=== PATIENT | male | born 1955 | race Caucasian/White ===

== ENCOUNTER 2021-12-20 07:15 | Day surgery (SDC) | payer BC ==
[2021-12-17 08:21] VITALS: BMI 33.6
[~2021-12-20 07:15] MED LIST: ACETAMINOPHEN TAB 500 MG TAB PO PRN; GABAPENTIN 300 MG CAP PO PRN; HYDROmorphone 0.5 MG/0.5 ML SYRINGE IVP PRN; LIDOCAINE 1% (10MG/ML) FOR IV START INTRADERMA PRN; MELOXICAM 7.5 MG TAB PO PRN; ONDANSETRON 4 MG/2 ML VIAL IVP ONE; TRANEXAMIC ACID IN NACL,ISO-OS 1,000 MG in SALINE 1 100ML.BAG IVPB PRN
[2021-12-20] MEDS: LACTATED RINGERS 1,000 ML IV SCH (07:56)
[2021-12-20] MEDS ORDERED: MAGNESIUM HYDROXIDE 2,400 MG/10 ML CUP PO PRN (08:01)
[2021-12-20] MEDS ORDERED: NA PHOS,M-B/NA PHOS,DI-BA 133 ML ENEMA RECTAL PRN (08:01)
[2021-12-20] MEDS ORDERED: ONDANSETRON 4 MG/2 ML VIAL IVP PRN (08:01)
[2021-12-20] MEDS ORDERED: NALOXONE 0.4 MG/ML 1 ML VIAL IV PRN (08:01)
[2021-12-20] MEDS ORDERED: bisacodyL 10 MG SUPP RECTAL PRN (08:01)
[2021-12-20] MEDS ORDERED: HYDROmorphone 0.5 MG/0.5 ML SYRINGE IVP PRN ×3 (08:01)
[2021-12-20] MEDS ORDERED: HYDROcodone/APAP 7.5-325MG 1 EACH TAB PO PRN (08:03)
[2021-12-20] MEDS ORDERED: DEXAMETHASONE SOD PHOSPHATE 4 MG/ML 1 ML VIAL IVP ONE (08:10)
[2021-12-20] MEDS ORDERED: fentaNYL (PF) 50 MCG/ML 2 ML AMP IVP ONE (08:13)
[2021-12-20] MEDS ORDERED: MIDAZOLAM 2 MG/2 ML VIAL IVP ONE (08:13)
[2021-12-20] MEDS ORDERED: ROPIVACAINE 5 MG/ML 30 ML VIAL ONE (08:56)
[2021-12-20] MEDS ORDERED: MIDAZOLAM 2 MG/2 ML VIAL ONE (08:56)
[2021-12-20] MEDS ORDERED: PROPOFOL 10 MG/ML 20 ML VIAL IV ONE (08:56)
[2021-12-20] MEDS ORDERED: TRANEXAMIC ACID IN NACL,ISO-OS 1,000 MG/100 ML BAG ONE (08:56)
[2021-12-20] MEDS ORDERED: fentaNYL (PF) 50 MCG/ML 2 ML AMP ONE (08:56)
[2021-12-20] MEDS ORDERED: SODIUM CHLORIDE 0.9% (PF) 10 ML VIAL ONE (08:56)
[2021-12-20] MEDS ORDERED: ceFAZolin 1,000 MG in SODIUM CHLORIDE 0.9% 1,000 ML IRRIGATION ONE (09:03)
[2021-12-20] MEDS ORDERED: LACTATED RINGERS 1,000 ML IV ONE (10:02)
--- NOTE | 2021-12-20 11:34 | P.OP ---
Date of Procedure: 12/20/21 Preoperative Diagnosis: Ligamentous instability right total knee Postoperative Diagnosis: Ligamentous instability right total knee Procedure(s) Performed: Revision right total knee arthroplasty Implants: Mancia [employer] Nephew Legion Oxinium constrained femoral component size 5, right [employer] Legion press-fit stem, straight 18 mm x 160 mm Mancia [employer] Nephew size 5, 10 mm Legion distal femoral wedge 2 Mancia [employer] Nephew legion revision tibial baseplate size 4, right [employer] Legion press-fit stem, straight 13 mm x 160 mm Mancia [employer] Nephew Trisha II constrained articular insert size 3-4, 15 mm All components were cemented using Palacos R bone cement x 2 The articulation is Oxinium on polyethylene. Anesthesia: spinal Surgeon: Erasmo Bach Volleyball Assistant Coach #1: Saima Adam Estimated Blood Loss (ml): 50 Pathology: other (Cultures 2) Condition: stable Disposition: PACU Indications for Procedure: This is a 66-year-old gentleman that had a right total knee arthroplasty performed approximately 10 years ago. He's having more symptoms of ligamentous instability and after discussing the surgical nonsurgical treatment options with him at length, he wishes to proceed with a revision of his right total knee arthroplasty. Informed consent was obtained. Operative Findings: The operative findings are consistent with ligamentous instability of the right total knee. There is no signs of infection, but there are some mild to moderate polyethylene wear of the tibial component. Description of Procedure: Patient was seen in the preoperative area consent was reviewed and operative site was marked with a skin marker. An adductor canal pain catheter and an iPACK were placed by anesthesia in the preoperative area. Patient was then brought to the operating room and given preoperative antibiotics intravenously. A spinal anesthetic was administered by the anesthesia department. A tourniquet was placed on the upper thigh and the lower extremity was prepped and draped in usual sterile fashion. A gram of transexamic acid was given. A universal timeout was then performed which confirmed the patient's name, surgical site, ALLERGIES, and consent. The lower extremity was then exsanguinated and tourniquet was inflated to 250 mmHg. A standard and anterior midline approach to the knee was performed. The skin and subcutaneous tissue was dissected down to the patellar tendon, with the prior scar being excised. A medial parapatellar arthrotomy was then performed. A moderate amount of clear fluid was encountered, and this was cultured 2. The knee was then extended, the patellar was everted, and the knee was again flexed. The components were then inspected and grossly were found to be well fixed. On exam of the knee there is medial lateral and anterior posterior instability. The tibial poly-was then removed without incident. There was found to be some moderate polyethylene wear of the tibial component. On exam, her some moderate polyethylene wear of the Attention was directed to the femur. Using a small oscillating saw, the implant cement interface was disrupted, and the femoral component was easily removed with an osteotome and a mallet. There was minimal bone loss encountered. Attention was then directed to the tibia. Again using a small oscillating saw, the implant bone interface was disrupted. The tibial component was an easily removed with an osteotome and a mallet. There was very little bone loss from the tibia. Attention was redirected to the femur. Sequential reaming of the femoral canal was performed until good cortical fit was reached. The distal cutting guide was then placed over the reamer the distal femur cut was performed. Next the 4-in-1 cutting block was placed over the reamer and the appropriate cuts were performed. The cutting block and reamer were then removed and the femoral trial was placed. The bone was then removed for the box. Femoral trial was then removed. Attention was then redirected to the tibia. Sequential reaming of the tibial canal was performed until good cortical fit was reached The intramedullary proximal tibial cutting guide was then placed over the reamer, the proximal tibia was cut. The tibia was then prepared.. Trials were then placed with the appropriate-sized constrained liner. The knee was able to fully extend and flex to 125 and was stable throughout all range of motion. Trials were then removed. The cut surfaces of bone were then irrigated with pulsatile lavage. The knee was also irrigated with Irrisept solution. The components were then opened, the cement was mixed, and the components were then cemented in place. The cement was allowed to harden with the knee in full extension. After the cemented hardened. The tourniquet was released, and hemostasis was obtained. A second gram of transexamic acid was given. The knee was again irrigated. The knee was again taken through range of motion and found to be stable throughout all range of motion of 0-130, and the patella tracked normally. The fascia was then closed with #2 strata fix suture. The subcutaneous tissue was closed with 3-0 Vicryl and 3-0 strata fix. Exofin glue was used for the skin and placed with the knee in flexion. The patient was placed in a sterile silver dressing. Patient was then transferred to recovery room in stable condition. The undertaker assistant CRYS Pastor was required due the complexity surgery and the need for a skilled surgical asst. She assisted in positioning, draping, retraction, and closure of the wound.
--- NOTE | 2021-12-20 12:38 | XR ---
EXAMINATION TYPE: XR knee limited RT DATE OF EXAM: 12/20/2021 CLINICAL HISTORY: Right knee pain and arthritis status post total knee revision surgery. TECHNIQUE: Portable AP and crosstable lateral views of the right knee are obtained immediately posto peratively. COMPARISON: Right knee x-ray 07/16/2010. FINDINGS: Metallic hardware from long stem total right knee arthroplasty is seen and appears satisfa ctory in alignment and position. There is evidence of recent surgery with diffuse subcutaneous gas a nd soft tissue swelling noted. IMPRESSION: METALLIC HARDWARE FROM TOTAL RIGHT KNEE ARTHROPLASTY REVISION IS SATISFACTORY IN ALIGNME NT.
[2021-12-20] MEDS ORDERED: ROPIVACAINE 0.2%-NS ON-Q PUMP 2 MG/ML EACH MISCELLANE ONE (12:39)
[2021-12-20] MEDS: SODIUM CHLORIDE 0.9% 1,000 ML IV SCH ×2 (13:12→21:37)
--- NOTE | 2021-12-20 13:40 | P.ANPRN ---
Procedure Note - Anesthesia - Nerve Block Performed Right Adductor Canal Infusion Time Out Performed: Yes (813) Date of Procedure: 12/20/21 Procedure Start Time: 08:14 Procedure Stop Time: 08:20 Location of Patient: PreOp Indication: Acute Post-Operative Pain, Requested by Surgeon Specifically requested for management of pain by DrEdyta: Erasmo Bach Sedation Type: Sedate with meaningful contact maintained Preparation: Sterile Prep, Sterile Dressing Position: Supine Catheter Depth at Skin (cm): 8 Catheter: Indwelling Needle Types: Pajunk Needle Gauge: 21 Ultrasound used to visualize needle placement: Yes Ultrasound used to observe medication spread: Yes Injectate: 0.5% Ropivacaine (see comment for volume) (15cc + 5cc nacl) Blood Aspirated: No Pain Paresthesia on Injection Noted: No Resistance on Injection: Normal Image Stored and Saved: Yes Events: Uneventful and Well Tolerated
--- NOTE | 2021-12-20 13:41 | P.ANPRN ---
Procedure Note - Anesthesia - Nerve Block Performed Right iPack Single Time Out Performed: Yes (813) Date of Procedure: 12/20/21 Procedure Start Time: Procedure Stop Time: Location of Patient: PreOp Indication: Acute Post-Operative Pain, Requested by Surgeon Specifically requested for management of pain by DrEdyta: Erasmo Bach Sedation Type: Sedate with meaningful contact maintained Preparation: Sterile Prep Position: Supine Catheter: None Needle Types: Pajunk Needle Gauge: 21 Ultrasound used to visualize needle placement: Yes Ultrasound used to observe medication spread: Yes Injectate: 0.5% Ropivacaine (see comment for volume) (15cc + 5cc nacl) Blood Aspirated: No Pain Paresthesia on Injection Noted: No Resistance on Injection: Normal Image Stored and Saved: Yes Events: Uneventful and Well Tolerated
--- NOTE | 2021-12-20 17:02 | P.HPIM ---
History of Present Illness H&P Date: 12/20/21 Chief Complaint: Status post right TKA Patient is a 66-year-old male with a past medical history of hypertension and chronic vertigo who presents to the ED for right TKA. Patient was seen after surgery. He currently denies any pain. He has no acute complaints. Review of Systems 10 ROS reviewed and are negative except as noted in HPI Past Medical History Past Medical History: Cancer, Hypertension, Osteoarthritis (OA) Additional Past Medical History / Comment(s): skin cancer History of Any Multi-Drug Resistant Organisms: None Reported Past Surgical History: Hernia Repair, Joint Replacement Additional Past Surgical History / Comment(s): yoselyn knee replacement, hernia x 4, surgery for cleft palate Past Anesthesia/Blood Transfusion Reactions: No Reported Reaction Past Psychological History: No Psychological Hx Reported Smoking Status: Never smoker Past Alcohol Use History: Occasional Past Drug Use History: None Reported - Past Family History Mother Family Medical History: No Reported History Medications and Allergies Home Medications Medication Instructions Recorded Confirmed Type Meclizine [Antivert] 25 mg PO DAILY 12/17/21 12/20/21 History Multivit-Min/Folic/Vit K/Lycop 1 each PO DAILY 12/17/21 12/20/21 History [Men's Multivitamin Tablet] hydroCHLOROthiazide 25 mg PO DAILY 12/17/21 12/20/21 History Aspirin 325 mg PO BID #60 tab 12/20/21 Rx HYDROcodone/APAP 7.5-325MG [[place]kins 1 - 2 tab PO Q6H PRN #32 tab 12/20/21 Rx 7.5-325] Ondansetron Odt [Zofran Odt] 1 tab PO Q8HR PRN #10 tab 12/20/21 Rx Sennosides [Senokot] 2 tab PO DAILY PRN #60 tablet 12/20/21 Rx Allergies Allergy/AdvReac Type Severity Reaction Status Date / Time No Known Allergies Allergy Verified 12/20/21 07:50 Physical Exam Osteopathic Statement: *. No significant issues noted on an osteopathic structural exam other than those noted in the History and Physical/Consult. Vitals: Vital Signs Temp Pulse Resp BP Pulse Ox 12/20/21 14:16 71 129/77 93 L 12/20/21 14:01 65 133/82 94 L 12/20/21 13:46 61 129/69 96 12/20/21 13:31 64 136/70 99 12/20/21 13:16 80 135/84 95 12/20/21 13:01 97.6 F 58 L 109/73 97 12/20/21 12:57 59 L 16 147/81 99 12/20/21 12:45 54 L 16 140/79 99 12/20/21 12:30 58 L 16 142/80 99 12/20/21 12:15 59 L 16 149/87 99 12/20/21 12:00 55 L 16 128/82 99 12/20/21 11:45 59 L 16 140/79 99 12/20/21 11:30 61 16 133/74 100 12/20/21 11:18 96.9 F L 75 16 127/73 96 12/20/21 08:35 66 18 155/74 95 12/20/21 08:01 97.2 F L 70 18 189/98 97 Intake and Output 12/20/21 12/20/21 12/20/21 06:59 14:59 22:59 Intake Total 1251 Output Total 50 Balance 1201 Intake: IV 1251 Output: Estimated Blood Loss 50 Other: # Voids 1 Weight 118.5 kg General: [Alert and oriented, well nourished, no acute distress]. Eye: [PERRL, EOMI, normal conjunctiva]. HENT: [Normocephalic, clear tympanic membranes, normal hearing, moist oral mucosa, no scleral icterus, no sinus tenderness]. Neck: [Supple, non-tender, no carotid bruits, no JVD, no lymphadenopathy]. Lungs: [Clear to auscultation and percussion, non-labored respiration]. Heart: [Normal rate, regular rhythm, no murmur, gallop or edema]. Abdomen: [Soft, non-tender, non-distended, normal bowel sounds, no masses]. Musculoskeletal: [Restricted range of motion of the right knee]. Skin: [Right knee bandages intact and dry. Neurologic: [Awake, alert, and oriented X3, CN II-XII intact]. Psychiatric: [Cooperative, appropriate mood and affect]. Thrombosis Risk Factor Assmnt - Choose All That Apply Any of the Below Risk Factors Present?: Yes Each Factor Represents 1 point: Obesity (BMI >25) Other Risk Factors: Yes Each Risk Factor Represents 2 Points: Age 61-74 years, Laparoscopic surgery Each Risk Factor Represents 5 Points: Elective major lower extremity arthoplasty Thrombosis Risk Factor Assessment Total Risk Factor Score: 10 Thrombosis Risk Factor Assessment Level: High Risk Assessment and Plan Assessment: Status post right TKA -Your orthopedic management -Patient on aspirin 325 mg by mouth twice a day for DVT prophylaxis -We'll follow-up on morning labs Hypertension -Blood pressure is controlled -Resume hydrochlorothiazide Chronic vertigo -Resume meclizine Thank you for the consult and we will follow along with you
[2021-12-20] MEDS: HYDROcodone/APAP 7.5-325MG 1 EACH TAB PO PRN ×2 (17:08→23:42)
[2021-12-20] MEDS ORDERED: SENNOSIDES-DOCUSATE SODIUM 1 EACH TAB PO SCH (21:00)
[2021-12-20] MEDS: ASPIRIN 325 MG TAB PO SCH (21:31)
[2021-12-21 03:05] VITALS: PULSE 66
[2021-12-21] MEDS: LACTATED RINGERS 1,000 ML IV SCH (05:30)
[2021-12-21] MEDS: ASPIRIN 325 MG TAB PO SCH (07:12)
[2021-12-21 07:24] VITALS: BP 124/80; RESP 17; TEMP 97.9
--- NOTE | 2021-12-21 08:54 | P.DS ---
Providers Expected date of discharge: 12/21/21 Attending physician: rEasmo Bach Consults: 12/20/21 08:01 Consult Physician Routine Consulting Provider: Haley Zuniga Consult Reason/Comments: medical mangement Do you want consulting provider notified?: Yes Primary care physician: Darren Marie - Discharge Diagnosis(es) (1) S/P revision of total knee Current Visit: Yes Status: Acute Hospital Course: This is a 66-year-old male with known history of previous right total knee replacement. The patient presented for evaluation as an outpatient due to ligamentous instability. After discussion and consideration patient elects to proceed with revision right total knee arthroplasty. The patient is seen pre operatively by Dr. Bach and medically cleared for surgery by their primary care physician. Patient is admitted to [facility] on 12/20/2021 for revision right total knee arthroplasty. The procedure is performed without complication or sequelae. The patient is doing well postoperatively. Labs and vital signs are stable on day of discharge. On day of discharge patient's knee incision is healing well. There is minimal erythema. There is no drainage noted at this time. There is minimal soft tissue swelling to the knee. Patient has full foot and ankle motion without difficulty or pain. Calf is soft and nontender to palpation. Neurovascular status to the right lower extremity is intact. Patient is discharged home in good condition. Please see [facility] rec for accurate list of home medications. Plan - Discharge Summary Discharge Rx Participant: No New Discharge Prescriptions: New Aspirin 325 mg PO BID #60 tab HYDROcodone/APAP 7.5-325MG [[place] 7.5-325] 1 - 2 tab PO Q6H PRN #32 tab PRN Reason: Pain Sennosides [Senokot] 2 tab PO DAILY PRN #60 tablet PRN Reason: Constipation Ondansetron Odt [Zofran Odt] 1 tab PO Q8HR PRN #10 tab PRN Reason: Nausea No Action Meclizine [Antivert] 25 mg PO DAILY Multivit-Min/Folic/Vit K/Lycop [Men's Multivitamin Tablet] 1 each PO DAILY hydroCHLOROthiazide 25 mg PO DAILY Discharge Medication List Meclizine [Antivert] 25 mg PO DAILY 12/17/21 [History] Multivit-Min/Folic/Vit K/Lycop [Men's Multivitamin Tablet] 1 each PO DAILY 12/17/21 [History] hydroCHLOROthiazide 25 mg PO DAILY 12/17/21 [History] Aspirin 325 mg PO BID #60 tab 12/20/21 [Rx] HYDROcodone/APAP 7.5-325MG [[place] 7.5-325] 1 - 2 tab PO Q6H PRN #32 tab 12/20/21 [Rx] Ondansetron Odt [Zofran Odt] 1 tab PO Q8HR PRN #10 tab 12/20/21 [Rx] Sennosides [Senokot] 2 tab PO DAILY PRN #60 tablet 12/20/21 [Rx] Follow up Appointment(s)/Referral(s): Erasmo Bach DO [Doctor of Osteopathic Medicine] - 01/05/22 1:30 pm Activity/Diet/Wound Care/Special Instructions: Weightbearing as tolerated with a walker. CPM 5-6h daily as tolerated. Leave dressing intact. Dressing may be removed by home care nurse or by patient in 7 days. Then change dressing twice daily until follow up. May shower with initial dressing intact and after removal. If dressing become saturated, please remove. Recommend use of compression stockings daily until follow up to help prevent s welling and blood clots. May remove at night before sleeping. Please take aspirin 325mg twice daily for 30 days to prevent blood clots. Please follow up with [facility] and call with any questions or concerns, . Discharge Disposition: HOME WITH HOME HEALTH SERVICES
[2021-12-21] MEDS ORDERED: MECLIZINE 25 MG TAB PO SCH (09:00)
[2021-12-21] MEDS ORDERED: hydroCHLOROthiazide 25 MG TAB PO SCH (09:00)
[2021-12-21 09:29] LABS: Basophils # (A) 0.01 X 10*3/uL (0.00-0.10); Basophils % (A) 0.1 %; Eosinophils # (A) 0 X 10*3/uL (0.04-0.35); Eosinophils % (A) 0 %; HCT 37.6 % (39.6-50.0); HGB 12.4 g/dL (13.0-17.0); Immature Grans, Automated 0.4 %; Lymphocytes # (A) 1.62 X 10*3/uL (0.90-5.00); Lymphocytes % (A) 17.9 %; Mean Platelet Volume 11.4 fL (9.5-12.2); Monocytes # (A) 0.68 X 10*3/uL (0.20-1.00); Monocytes % (A) 7.5 %; NRBC Per 100 WBC 0 /100 WBCS (0.0-0.0); Neutrophils # (A) 6.72 X 10*3/uL (1.80-7.70); Neutrophils % (A) 74.1 %; Platelet Count 158 X 10*3/uL (140-440); RBC 4.13 X 10*6/uL (4.40-5.60); RDW 13.2 % (11.5-14.5); WBC 9.07 X 10*3/uL (4.50-10.00)
--- NOTE | 2021-12-21 09:29 | P.PN ---
Progress Note - Text Progress Note Date: 12/21/21 (962) Anesthesiology Postop day 1 status post total knee arthroplasty with adductor canal catheter. Patient doing well. VAS 1-2 out of 10. Gross strength intact in lower extremity. Afebrile. Denies alterations in sensorium. Catheter site intact. Heart regular rate Lungs nonlabored Abdomen nondistended Assessment: Postop day 1 status post total knee arthroplasty with adductor canal catheter Plan: All questions answered. Maintain catheter 2 more days with patient removal at home. Instructions were given at discharge.
--- NOTE | 2021-12-21 15:05 | P.PN ---
Subjective Progress Note Date: 12/21/21 (delayed charting seen at 0915) Patient is a 66-year-old male with a past medical history of hypertension and chronic vertigo who presents to the ED for right TKA Patient seen and examined at bedside. Pain is well-controlled with resting chest pain, shortness of breath. We discussed the need for taking stool softeners after surgery and patient in agreement. Family present at bedside and all questions answered. General: non toxic, no distress, appears at stated age Derm: warm, dry Head: atraumatic, normocephalic, symmetric Eyes: EOMI, no lid lag, anicteric sclera Mouth: no lip lesion, mucus membranes moist Cardiovascular: S1S2 reg, no murmur, positive posterior tibial pulse bilateral, Lungs: CTA bilateral, no rhonchi, no rales , no accessory muscle use Abdominal: soft, nontender to palpation, no guarding, no appreciable organomegaly Ext: no gross muscle atrophy, mild swelling over right knee with dressing in place.. no contractures Neuro: CN II-XI grossly intact, no focal neuro deficits Psych: Alert, oriented, appropriate affect Assessment/plan: Status post right TKA Hypertension -Resume hydrochlorothiazide Chronic vertigo -Meclizine Acute blood loss anemia anticipated outcome of surgery -No indication to recheck hemoglobin. No need for iron supplementation at this time. Discharge home medication conciliation completed. Patient medically optimized for discharge Objective - Vital Signs Vital signs: Vital Signs Temp 97.9 F 12/21/21 07:23 Pulse 66 12/21/21 07:23 Resp 17 12/21/21 07:23 BP 124/80 12/21/21 07:23 Pulse Ox 97 12/21/21 07:23 FiO2 Intake & Output 12/20/21 12/21/21 12/21/21 18:59 06:59 18:59 Intake Total 1251 540 Output Total 50 Balance 1201 540 Weight 118.5 kg Intake: IV 1251 Oral 540 Output: Estimated Blood Loss 50 Other: # Voids 1 1 - Labs CBC & Chem 7: 12/21/21 05:33 Labs: Abnormal Lab Results - Last 24 Hours (Table) 12/21/21 Range/Units 05:33 RBC 4.13 L (4.40-5.60) X 10*6/uL Hgb 12.4 L (13.0-17.0) g/dL Hct 37.6 L (39.6-50.0) % Eosinophils # 0 L (0.04-0.35) X 10*3/uL Microbiology - Last 24 Hours (Table) 12/20/21 09:27 Gram Stain - Preliminary Knee - Right Wound Culture - Preliminary 12/20/21 09:26 Gram Stain - Preliminary Knee - Right Wound Culture - Preliminary 12/20/21 09:26 Anaerobic Culture - Preliminary Knee - Right 12/20/21 09:27 Anaerobic Culture - Preliminary Knee - Right
== END 2021-12-21 12:32 | disposition home health service (06) ==
LOC: OR 07:15 → 4SSUR 11:18 → OR 12-21 12:32
PROVIDERS: ATTEND Orthopaedic Surgery
DX: M23.51 Chronic instability of knee, right knee (principal); M17.11 Unilateral primary osteoarthritis, right knee; I10 Essential (primary) hypertension; Z79.82 Long term (current) use of aspirin; Z79.899 Other long term (current) drug therapy; Z85.828 Personal history of other malignant neoplasm of skin
CPT/HCPCS: 27487; 97161; 85025; 87070; 87205; 87075; 73560; J2250; J1100; J0690 ×2; J2405; J3010; J2795 ×2; J2704; 64448; 64999; 76942